=== PATIENT | female | born 1995 | race Caucasian/White ===

== ENCOUNTER 2019-08-12 22:15 | Emergency (ER) | payer MEDICAID, OTHER ==
[~2019-08-12] VITALS: Ht 170.1 cm; Wt 54.4 kg
[2019-08-12 22:57] VITALS: BP 115/81
--- NOTE | 2019-08-12 22:59 | NUR ---
Pt reported to registration pt is leaving
== END 2019-08-12 22:59 | disposition left against medical advice (07) ==
LOC: ER 22:18
DX: S90.31XA Contusion of right foot, initial encounter (principal); W20.8XXA Other cause of strike by thrown, projected or falling object, initial encounter; Y92.59 Other trade areas as the place of occurrence of the external cause
CPT/HCPCS: 99281

== ENCOUNTER 2019-08-12 23:40 | Emergency (ER) | payer MEDICAID, OTHER ==
[~2019-08-12] VITALS: Ht 170 cm; Wt 54.4 kg
--- NOTE | 2019-08-13 01:42 | ED Lower Extremity ---
General Chief Complaint: Lower Extremity Stated Complaint: RT FOOT PAIN Physical Exam Vital Signs Capillary Refill : Height, Weight, BMI Height: '" Weight: lbs. oz. kg; 18.00 BMI Method: Progress/Results/Core Measures Results/Orders My Orders Orders - ADIS RIVERA DO Foot, Right, 3 View (08/13/19 00:52) Felipe Bandage (08/13/19 01:39) Post-Op Shoe (08/13/19 01:39) Departure Impression Primary Impression: Contusion of right foot Disposition: HOME, SELF-CARE Condition: Stable Departure-Patient Inst. Referrals: NO,LOCAL PHYSICIAN (PCP/Family) Primary Care Physician Patient Instructions: Contusion (DC), How to Use an Elastic Bandage Add. Discharge Instructions: FELIPE WRAP AND POST OP SHOE NEEDED FOR COMFORT ICE TO AREA AT 20 MINUTE INTERVALS ELEVATE FOOT MUCH POSSIBLE TYLENOL AND MOTRIN NEEDED FOR PAIN FOLLOW UP WITH YOUR WORKMAN'S COMP DR IN 1 WEEK IF NO BETTER All discharge instructions reviewed with patient and/or family. Voiced understanding. ADIS RIVERA DO Aug 13, 2019 01:42
[2019-08-13 01:55] VITALS: BP 124/89
--- NOTE | 2019-08-13 07:09 | Diagnostic Imaging Report ---
INDICATION: Right foot pain.. TECHNIQUE: 3 views of the right foot CORRELATION STUDY: None FINDINGS: The osseous structures of the foot are intact. Joint spaces are maintained. Alignment anatomic. Soft tissues appearing unremarkable. IMPRESSION: 1. Negative for acute findings of the foot. Dictated by: Dictated on workstation # [id number]
== END 2019-08-13 01:55 | disposition home or self-care (01) ==
LOC: EDUNIT# 23:40 → ER 23:42
DX: S90.31XA Contusion of right foot, initial encounter (principal); X58.XXXA Exposure to other specified factors, initial encounter
CPT/HCPCS: 73630